=== PATIENT | female | born 1965 | race Caucasian/White ===

== ENCOUNTER 2024-07-16 19:42 | Emergency (ER) | payer OTHER, SELFPAY ==
[2024-07-16 19:52] VITALS: BP 122/76
--- NOTE | 2024-07-16 21:01 | ED.MUSCINJ ---
HPI-Injury
General
Chief Complaint: Musculo-Skeletal Complaint
Source: patient
Exam Limitations: none
Time Seen by Provider: 07/16/24 20:32
History of Present Illness-Injury
Is this injury a work related problem?: No
Is pt an associate of [facility]/[place]?: No
Initial Injury comments:
This is a 58 year old female that comes in with c/o right foot pain. States that they got a puppy on Wednesday. states that she has not slept more then 3 hours since then. States that today she tried to go over the baby gate and her foot got stuck.
State that she did not fall but has pain in the foot. Denies hitting her head or any LOC. Denies any fever, chills nausea, vomiting or diarrhea.
Past History
Past History
ED Past Medical History: None, Hypercholesterolemia, Psychiatric (Depression) and Other (Back pain, Low BP, PMR)
ED Past Surgical History: Cholecystectomy, Gynecological (Left ovarian cyst. ) and Other (Bilateral salpingectomy, Left oophorectomy)
Social History
Tobacco: Former smoker
Alcohol: None
Personal:
Living: with family
Employment: Employed
Family History
Family History: Other (Noncontributory)
Review of Systems
Review of Systems
All Other Systems: ROS reviewed and negative except as documented in HPI and ROS
Constitutional: Reports no symptoms; Denies fever or chills
EENT: Reports no symptoms
Respiratory: Reports no symptoms
Cardiac: Reports no symptoms
ABD/GI: Reports no symptoms
: Reports no symptoms
Musculoskeletal: Reports other (Right foot pain)
Skin: Reports no symptoms
Neurological: Reports no symptoms
Psychiatric: Reports no symptoms
Musculoskeletal Injury Exam
Musculoskeletal Injury Exam
Right Medial Foot:
Pain with Movement?: Mild
Tender to palpation?: Mild
Soft tissue swelling?: Mild
External deformity and angulation?: None
Joint effusion?: None
Contusion?: None
Hematoma-local bleeding into tissue?: None
Strain- Sprain- Tear (Connective tissue injury)?: None
Crepitus with movement?: No
Joint instability?: No
Malalignment/deformity?: No
Range of motion: Full
Distal skin color and temperature: normal-warm & good color
Capillary Refill: normal
Normal distal neurovascular exam?: Yes
Phy Exam
General Physical Exam
General Presentation: well appearing and no apparent distress
General age: appears stated age
General Skin: warm and dry
General Habitus: normal
General Mental: alert
General Hydration: appears well hydrated
Eye Exam
Eye Exam: EOMI
Musculoskeletal Exam
Musculoskeletal Exam: full ROM and other (Slight swelling on the medial aspect right foot with tenderness)
Skin Exam
Skin Exam: normal color, warm/dry, no rash and no petechia
Psychiatric Exam
Psychiatric Exam: normal mood/affect
Injury Course
Orders/Labs/Results
Orders:
Orders
07/16/24 19:54
CR Foot - Right Min 3 Views Urgent
Comment:
Reason For Exam: injury
MDM/Problems Addressed
Differential Diagnosis Includes:
Foot contusion, Sprain
MDM/Problems Addressed:
This is a 58 year old female that comes in with c/o right foot pain after getting her foot caught in a baby gate. states that she did not fall
will get X-ray.
Explained that there are no fracture and that this is most likely a bruise. Patient to use ice and elevated. Tylenol or Ibuprofen. Return with any concerns.
Chronic conditions affecting care:
NA
Acute Exacerbation and/or Progression of Chronic Illness:
NA
*Radiology
Radiology exam reviewed: radiology read reviewed (Foot-No acute fracture or dislocation. Minimal dorsal calcaneal enthesopathy. Joint spaces are well-maintained. Soft tissues are grossly unremarkable. )
*Pulse Oximetry
Patient hypoxic: no
*EKG
Interpreted by ED Provider?: NA
Rate: EKG- N/A
*Subsurface Augmentee Operator Interpretation
Rate: Subsurface Augmentee Operator- N/A
*Critical Care Note
Total Time (30-74mins, 75-104mins- exclusive of procedures): Not Applicable
ED Attending Note
-
Portions of this chart may have been created with voice recognition software.� Occasional wrong word or��sound alike� substitutions may have occurred due to the inherent limitations of voice recognition software.
Discharge Plan
Departure
Patient Disposition: Home (Routine Discharge)
Date of Disposition: 07/16/24
Time of Disposition: 21:18
Patient with high blood pressure during this ER visit?: No
Condition: Good
Covid-19: Not Applicable
Discharge Problem:
Contusion of foot, right
Prescriptions:
No Action
acetaminophen [Tylenol] 325 mg Capsule
325 mg PO Q6H PRN (Reason: pain)
naproxen sodium [Aleve] 220 mg Capsule
220 mg PO DAILY PRN (Reason: pain)
Referrals:
Wilmar Breen DO [Family Provider] -
Activity Restrictions/Additional Instructions:
As discussed, there are no fractures or dislocation. Please use ice to help keep the swelling down. Elevate when sitting around. Tylenol or Ibuprofen for pain. IF YOU HAVE ANY OTHER CONCERNS PLEASE RETURN TO THE EMERGENCY ROOM.
Interventions
Interventions:
*Risk Screen - Suicide Last Done: 07/16/24 19:52
*General Assessment Last Done: 07/16/24 19:52
*Neglect/Abuse Screening Last Done: 07/16/24 19:52
ED- Fall Risk Assessment Last Done: 07/16/24 20:48
*ED COVID-19 Vaccine History Last Done: 07/16/24 20:48
ED-Musculoskeletal Assessment Last Done: 07/16/24 20:48
Discharge Date and Time
Print Language: ROMANIAN
[2024-07-16 21:35] VITALS: BP 113/74
== END 2024-07-16 21:37 | disposition home or self-care (01) ==
LOC: EMR 19:42
PROVIDERS: EMERGENCY PHYSICIAN Emergency Medicine; FAMILY PHYSICIAN Family Medicine
DX: S90.31XA Contusion of right foot, initial encounter (principal); W22.8XXA Striking against or struck by other objects, initial encounter; E78.00 Pure hypercholesterolemia, unspecified; Z87.891 Personal history of nicotine dependence
CPT/HCPCS: 99283; 73630

== ENCOUNTER → 2024-10-16 08:49 | Outpatient (REF) | payer OTHER, SELFPAY | LOC: RAD 08:49 | PROVIDERS: ATTENDING PHYSICIAN Internal Medicine Rheumatology; FAMILY PHYSICIAN Family Medicine | DX: M35.3 Polymyalgia rheumatica (principal); M81.0 Age-related osteoporosis without current pathological fracture; M85.89 Other specified disorders of bone density and structure, multiple sites; Z13.820 Encounter for screening for osteoporosis | CPT/HCPCS: 77080 ==

== ENCOUNTER → 2025-05-02 12:24 | Outpatient (REF) | payer OTHER, SELFPAY | LOC: HWRAD 12:24 | PROVIDERS: ATTENDING PHYSICIAN Family Medicine; REFERRING PHYSICIAN Orthopaedic Surgery Hand Surgery | DX: S62.102A Fracture of unspecified carpal bone, left wrist, initial encounter for closed fracture (principal) | CPT/HCPCS: 73110 ==